=== PATIENT | male | born 1980 | race Caucasian/White ===

== ENCOUNTER 2017-05-20 08:01 | Emergency (ER) | payer BC ==
[~2017-05-20] VITALS: Ht 180.3 cm; Wt 97.7 kg
[2017-05-20] MEDS ORDERED: ATOR1TAB21 (08:18)
--- NOTE | 2017-05-20 10:23 | REP ---
LEFT ANKLE: Four views left ankle performed. Several tiny calcifications are seen lateral to the talus. These could represent tiny chip or avulsion fractures. There is adjacent soft tissue swelling. There is no other evidence of acute fracture or dislocation. The ankle mortise is anatomic. Signed by Hany Stewart MD 05/20/2017 05:15 P
--- NOTE | 2017-05-20 10:38 | REP ---
LEFT FOOT SERIES: Four views of the left foot are performed. Multiple tiny calcifications are seen dorsal and lateral to the talus having the appearance of chip or avulsion fractures of indeterminate age. No other acute fracture or dislocation is seen of the visualized osseous structures. Signed by Hany Stewart MD 05/20/2017 05:16 P
[2017-05-20] MEDS ORDERED: IBUP80TA PO (11:08)
[2017-05-20 11:16] VITALS: BP 114/93
== END 2017-05-20 11:20 | disposition home or self-care (01) ==
LOC: M ED 08:01
DX: S92.192A Other fracture of left talus, initial encounter for closed fracture (principal); X50.1XXA Overexertion from prolonged static or awkward postures, initial encounter; Y92.099 Unspecified place in other non-institutional residence as the place of occurrence of the external cause; Y93.01 Activity, walking, marching and hiking; Y99.9 Unspecified external cause status

== ENCOUNTER 2019-09-09 11:08 | Emergency (ER) | payer BC ==
[~2019-09-09 11:08] MED LIST: ATOR1TAB21; IBUP80TA PO
[2019-09-09] MEDS ORDERED: CLON0.5T2 (11:34)
[2019-09-09] MEDS ORDERED: PROP60CA (11:34)
[2019-09-09 12:17] LABS: BASO % 0.7 % (0.0-1.0); EOS # 0.2 10^3/uL (0.0-0.5); EOS % 3.7 % (0.0-3.0); HEMATOCRIT 45.6 % (42.0-52.0); HEMOGLOBIN 15.1 g/dl (13.5-17.5); LYMPH # 1.4 10^3/uL (1.5-5.0); LYMPH % 25.1 % (24.0-44.0); MEAN CORPUSCULAR HEMOGLOBIN 28.4 pg (27.0-33.0); MEAN CORPUSCULAR HGB CONC 33.1 g/dl (32.0-36.5); MEAN CORPUSCULAR VOLUME 85.9 fl (80.0-96.0); MONO # 0.6 10^3/uL (0.0-0.8); MONO % 11.5 % (0.0-5.0); NEUTROPHILS # 3.2 10^3/uL (1.5-8.5); NEUTROPHILS % 58.6 % (36.0-66.0); PLATELET COUNT, AUTOMATED 247 10^3/uL (150-450); RED BLOOD COUNT 5.31 10^6/uL (4.30-6.10); WHITE BLOOD COUNT 5.4 10^3/uL (4.0-10.0)
[2019-09-09 12:27] LABS: ALBUMIN 4.1 GM/DL (3.2-5.2); ALT/SGPT 32 U/L (12-78); BILIRUBIN,DIRECT 0.2 MG/DL (0.0-0.2); BILIRUBIN,TOTAL 0.4 MG/DL (0.2-1.0); BLOOD UREA NITROGEN 16 MG/DL (7-18); C REACTIVE PROTEIN QUANTITATIV < 0.30 MG/DL (0.00-0.30); CALCIUM LEVEL 9.2 MG/DL (8.5-10.1); CARBON DIOXIDE LEVEL 27 MEQ/L (21-32); CHLORIDE LEVEL 105 MEQ/L (98-107); CK-MB VALUE MASS < 1.0 NG/ML (<3.6); CPK CREATINE PHOSPHOKINASE 93 U/L (39-308); CREATININE FOR GFR 1.02 MG/DL (0.70-1.30); GLOMERULAR FILTRATION RATE > 60.0 (>60); GLUCOSE, FASTING 95 MG/DL (70-100); MB/CK RELATIVE INDEX 1.08 (< OR =4); SODIUM LEVEL 142 MEQ/L (136-145); TOTAL PROTEIN 7.4 GM/DL (6.4-8.2); TROPONIN I < 0.02 NG/ML (< 0.10)
--- NOTE | 2019-09-09 12:30 | REP ---
Chest x-ray: Two views. History: Chest discomfort. Findings: The lungs are well inflated and clear. The pleural angles are sharp. Heart size is normal. Pulmonary vasculature is not increased. No significant bony abnormality is seen. Impression: Negative chest x-ray. Electronically Signed by Ish Martinez MD 09/09/2019 12:21 P
[2019-09-09 12:50] LABS: ERYTHROCYTE SEDIMENTATION RATE 3 mm/hr (0-15)
--- NOTE | 2019-09-09 13:29 | REP ---
CT STUDY OF THE CERVICAL SPINE WITHOUT CONTRAST: HISTORY: Left arm pain and numbness. TECHNIQUE: Helical scanning is acquired and overlapping 2 mm high resolution axial images were generated and reviewed at bone and soft tissue window settings. Coronal and sagittal multiplanar re-formations images are generated. CT FINDINGS: There is no evidence of cervical spine element fracture. No skull base fracture is seen. Cervical vertebral body heights are preserved. Alignment is normal. Facet joints are normally aligned bilaterally at each cervical level on multiplanar re-formations images. There is no evidence of intraspinal or paraspinal hematoma. No extra vertebral abnormality is seen. There is mild degenerative disc disease at C5-6 with posterior osteophytic ridging. Similar changes are noted at C6-7. IMPRESSION: Minimal degenerative disc disease C5-6 and C6-7. Otherwise negative CT study of the cervical spine without contrast. No fracture seen. Electronically Signed by Ish Martinez MD 09/09/2019 02:30 P
--- NOTE | 2019-09-09 13:30 | REP ---
CT BRAIN WITHOUT CONTRAST: HISTORY: Left arm pain and numbness. No comparison study. 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 The bony calvarium is intact. Visualized paranasal sinuses are clear. There is a small subarachnoid cyst in the right side of the posterior fossa which subtly displaces the right cerebellum in the fourth ventricle to the left. The right cerebellar hemisphere is displaced somewhat superiorly. Stewart-white differentiation pattern is normal above and below the tentorium. There is no evidence of intracranial hemorrhage. No other extra-axial fluid collection is seen. There is no evidence of infarct, mass, or supratentorial midline shift. IMPRESSION: There is a subarachnoid cyst in the right posterior fossa exhibiting mild mass effect on the posterior fossa contents. Otherwise negative noncontrast head CT. Electronically Signed by Ish Martinez MD 09/09/2019 02:30 P
[2019-09-09 13:37] VITALS: BP 128/64
--- NOTE | 2019-09-11 05:57 | ECGEPIP ---
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
--- NOTE | 2019-09-12 14:37 | ED PDOC ---
Post-Departure Follow-Up dr montanez faxed formal report of ct head Broderick Kendrick MD Sep 12, 2019 14:37
--- NOTE | 2019-09-12 14:38 | ED PDOC ---
Post-Departure Follow-Up dr godfrey also faxed formal report of ct head for fu Broderick Kendrick MD Sep 12, 2019 14:38
== END 2019-09-09 14:35 | disposition home or self-care (01) ==
LOC: M ED 11:08
DX: G93.0 Cerebral cysts (principal); R20.2 Paresthesia of skin; M51.36 Other intervertebral disc degeneration, lumbar region; F41.0 Panic disorder [episodic paroxysmal anxiety]; F41.9 Anxiety disorder, unspecified; Z87.81 Personal history of (healed) traumatic fracture; M50.322 Other cervical disc degeneration at C5-C6 level; M50.323 Other cervical disc degeneration at C6-C7 level; Z79.899 Other long term (current) drug therapy

== ENCOUNTER 2020-08-07 21:04 | Emergency (ER) | payer BC ==
[~2020-08-07] VITALS: Ht 180.3 cm; Wt 100.6 kg
[~2020-08-07 21:04] MED LIST changes: +CLON0.5T2; +PROP60CA
[2020-08-07] MEDS ORDERED: NS 1,000 ML IV ONE (21:45)
[2020-08-07 22:13] LABS: BASO % 0.5 % (0.0-1.0); EOS # 0.2 10^3/uL (0.0-0.5); EOS % 1.9 % (0.0-3.0); HEMATOCRIT 48.3 % (42.0-52.0); HEMOGLOBIN 16.1 g/dl (13.5-17.5); LYMPH # 2.3 10^3/uL (1.5-5.0); MEAN CORPUSCULAR HEMOGLOBIN 27.8 pg (27.0-33.0); MEAN CORPUSCULAR HGB CONC 33.3 g/dl (32.0-36.5); MEAN CORPUSCULAR VOLUME 83.3 fl (80.0-96.0); MONO # 0.7 10^3/uL (0.0-0.8); MONO % 8.6 % (0.0-5.0); NEUTROPHILS # 4.9 10^3/uL (1.5-8.5); NEUTROPHILS % 60.8 % (36.0-66.0); PLATELET COUNT, AUTOMATED 261 10^3/uL (150-450)
--- NOTE | 2020-08-07 22:25 | REPVR ---
PROCEDURE INFORMATION: Exam: XR Chest, 2 Views Exam date and time: 08/07/20 (9:49pm) Age: 39 years old Clinical indication: Palpitations. SOB. TECHNIQUE: Imaging protocol: XR of the chest Views: 2 views COMPARISON: Chest films of 09/09/19 FINDINGS: Lungs: Unremarkable. No consolidation. Pleural space: Unremarkable. No pleural effusions. No pneumothorax. Heart/Mediastinum: Unremarkable. No cardiomegaly. Bones/joints: Unremarkable. IMPRESSION: No acute findings. Clear lung dunne. Electronically signed by: Amisha Mccray On 08/07/2020 22:25:34 PM
[2020-08-07 22:40] LABS: FREE T4 0.98 NG/DL (0.76-1.46); MAGNESIUM LEVEL 2.2 MG/DL (1.8-2.4); PHOSPHORUS LEVEL 3.1 MG/DL (2.5-4.9)
[2020-08-07 22:47] LABS: ALBUMIN 4.5 GM/DL (3.2-5.2); ALT/SGPT 44 U/L (12-78); BILIRUBIN,DIRECT 0.1 MG/DL (0.0-0.2); BILIRUBIN,TOTAL 0.5 MG/DL (0.2-1.0); BLOOD UREA NITROGEN 14 MG/DL (7-18); CARBON DIOXIDE LEVEL 28 MEQ/L (21-32); CHLORIDE LEVEL 104 MEQ/L (98-107); CK-MB VALUE MASS < 1.0 NG/ML (<3.6); CPK CREATINE PHOSPHOKINASE 90 U/L (39-308); CREATININE FOR GFR 1.13 MG/DL (0.70-1.30); FREE T4 1.05 NG/DL (0.76-1.46); GLOMERULAR FILTRATION RATE > 60.0 (>60); GLUCOSE, FASTING 131 MG/DL (70-100); MB/CK RELATIVE INDEX 1.11 (< OR =4); POTASSIUM SERUM 3.7 MEQ/L (3.5-5.1); SODIUM LEVEL 141 MEQ/L (136-145); TOTAL PROTEIN 7.9 GM/DL (6.4-8.2); TROPONIN I < 0.02 NG/ML (< 0.10)
[2020-08-07 23:30] VITALS: BP 132/83
--- NOTE | 2020-08-08 07:33 | ECGEPIP ---
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
== END 2020-08-07 23:45 | disposition home or self-care (01) ==
LOC: M ED 21:04
DX: R00.0 Tachycardia, unspecified (principal); R06.02 Shortness of breath; E78.5 Hyperlipidemia, unspecified; Z79.899 Other long term (current) drug therapy

== ENCOUNTER → 2020-10-10 | Outpatient (REF) | payer BC | LOC: M LAB REF 12:44 | PROVIDERS: ATTEND Internal Medicine | DX: M10.9 Gout, unspecified (principal) ==

== ENCOUNTER 2021-08-31 09:57 | Emergency (ER) | payer BC ==
[~2021-08-31] VITALS: Ht 177.8 cm; Wt 96.8 kg
[2021-08-31] MEDS ORDERED: SERT50TA29 (10:04)
[2021-08-31 11:06] VITALS: BP 145/77
== END 2021-08-31 11:07 | disposition home or self-care (01) ==
LOC: M ED 09:57
DX: R20.2 Paresthesia of skin (principal); X31.XXXA Exposure to excessive natural cold, initial encounter; Y92.89 Other specified places as the place of occurrence of the external cause; Y93.23 Activity, snow (alpine) (downhill) skiing, snowboarding, sledding, tobogganing and snow tubing; Y99.9 Unspecified external cause status; Z79.899 Other long term (current) drug therapy

== ENCOUNTER → 2021-09-14 | Outpatient (REF) | payer BC ==
[~2021-09-14] MED LIST changes: +SERT50TA29
== END ==
LOC: M LAB REF 16:03
PROVIDERS: ATTEND Physician Assistant Medical
DX: G51.0 Bell's palsy (principal)

== ENCOUNTER → 2023-10-19 | Outpatient (CLI) | payer BC, OTHER | LOC: M WUC 09:31 | PROVIDERS: ATTEND Internal Medicine | DX: R10.30 Lower abdominal pain, unspecified (principal) ==

== ENCOUNTER → 2023-11-21 | Outpatient (CLI) | payer BC, OTHER, SELFPAY ==
[~2023-11-21] MED LIST changes: +E-Z-GAS II EFFERVESCENT PACKET (SODIUM BICARB./CITRIC ACID/SIMETHICONE) As Ordered ONE; +E-Z-HD 98% w/w 340GM SUSP BTL As Ordered ONE; +E-Z-PAQUE 96% w/w SUSP 176GM BTL As Ordered ONE
== END ==
LOC: M RAD 08:34
PROVIDERS: ATTEND Internal Medicine
DX: R13.10 Dysphagia, unspecified (principal); K44.9 Diaphragmatic hernia without obstruction or gangrene; K21.9 Gastro-esophageal reflux disease without esophagitis

== ENCOUNTER → 2024-10-22 | Outpatient (REF) | payer BC ==
[~2024-10-22] MED LIST changes: -E-Z-GAS II EFFERVESCENT PACKET (SODIUM BICARB./CITRIC ACID/SIMETHICONE) As Ordered ONE; -E-Z-HD 98% w/w 340GM SUSP BTL As Ordered ONE; -E-Z-PAQUE 96% w/w SUSP 176GM BTL As Ordered ONE
== END ==
LOC: M LAB REF 12:06
PROVIDERS: ATTEND Internal Medicine
DX: R68.82 Decreased libido (principal); R53.83 Other fatigue

== ENCOUNTER → 2024-12-06 | Outpatient (CLI) | payer BC | LOC: M PLAIMG 12:50 | PROVIDERS: ATTEND Internal Medicine | DX: R10.84 Generalized abdominal pain (principal) ==